=== PATIENT | male | born 1990 | race Caucasian/White ===

== ENCOUNTER 2016-07-19 12:23 | Inpatient (IN) | payer BC ==
[~2016-07-19] VITALS: Ht 198.1 cm; Wt 77.1 kg
[2016-07-19 16:21] VITALS: BP 115/75
[2016-07-19] MEDS ORDERED: Nitroglycerin Subl 0.4mg tab (Bottle Of 25) SL PRN (17:45)
[2016-07-19] MEDS ORDERED: Mylanta II UD 30ml ORAL PRN (17:45)
[2016-07-19] MEDS ORDERED: Morphine Sulfate 2mg/ml Inj IVP PRN (17:45)
[2016-07-19 18:17] LABS: BASOPHILS % (AUTO) 0.9 % (0.0-2.0); EOSINOPHILS % (AUTO) 1.3 % (0.0-3.0); LYMPHOCYTES % (AUTO) 36.8 % (20.0-45.0); MEAN CORPUSCULAR HEMOGLOBIN 35.1 PG (27.0-31.0); MEAN CORPUSCULAR HGB CONC 37.3 G/DL (32.0-36.0); MEAN CORPUSCULAR VOLUME 94 FL (80-99); MEAN PLATELET VOLUME 7.1 FL (6.5-10.1); MONOCYTES % (AUTO) 7.4 % (1.0-10.0); NEUTROPHILS % (AUTO) 53.7 % (45.0-75.0); PLATELET COUNT 177 K/UL (150-450); RED BLOOD COUNT 3.14 M/UL (4.70-6.10); WHITE BLOOD COUNT 8.4 K/UL (4.8-10.8)
[2016-07-19] MEDS: D5NS 1,000 ML IV SCH (18:25)
[2016-07-19 18:34] LABS: ALANINE AMINOTRANSFERASE 13 U/L (3-41); ALBUMIN/GLOBULIN RATIO 1.8 (1.0-2.7); ANION GAP 12 (5-15); ASPARTATE AMINO TRANSFERASE 14 U/L (5-40); CALCIUM 8.4 mg/dL (8.6-10.2); CARBON DIOXIDE 28 mEQ/L (20-30); CHLORIDE 102 mEQ/L (98-107); CREATININE 0.7 mg/dL (0.7-1.2); GLOMERULAR FILTRATION RATE > 60 mL/min (>60); HEMOLYSIS 4; POTASSIUM 3.8 mEQ/L (3.4-4.9); SODIUM 142 mEQ/L (135-145); TOTAL PROTEIN 5.7 g/dL (6.6-8.7)
[2016-07-19] MEDS ORDERED: Phytonadione 10 MG in D5W 55 ML IVPB ONE (19:30)
[2016-07-19 20:23] VITALS: BP 110/62
[2016-07-19] MEDS ORDERED: Miralax 17gm pkt ORAL PRN (21:00)
[2016-07-19] MEDS: Pantoprazole Inj IVP SCH (21:35)
[2016-07-19] MEDS ORDERED: LORazepam 1mg tab ORAL PRN (22:45)
[2016-07-20] VITALS (9 sets, daily range): BP systolic 90–112; BP diastolic 50–68
[2016-07-20] MEDS: D5NS 1,000 ML IV SCH ×2 (04:14→13:39)
[2016-07-20 08:38] LABS: EOSINOPHILS % (AUTO) 3.2 % (0.0-3.0); LYMPHOCYTES % (AUTO) 52.8 % (20.0-45.0); MEAN CORPUSCULAR HEMOGLOBIN 33.8 PG (27.0-31.0); MEAN CORPUSCULAR HGB CONC 35.6 G/DL (32.0-36.0); MEAN CORPUSCULAR VOLUME 95 FL (80-99); MEAN PLATELET VOLUME 7.6 FL (6.5-10.1); MONOCYTES % (AUTO) 7.2 % (1.0-10.0); NEUTROPHILS % (AUTO) 35.8 % (45.0-75.0); PLATELET COUNT 171 K/UL (150-450); RED BLOOD COUNT 2.84 M/UL (4.70-6.10); RED CELL DISTRIBUTION WIDTH 11.1 % (11.6-14.8); WHITE BLOOD COUNT 6.8 K/UL (4.8-10.8)
[2016-07-20] MEDS: Pantoprazole Inj IVP SCH ×2 (08:41→20:45)
[2016-07-20 08:43] LABS: INR 1.2 (0.9-1.1); PROTHROMBIN TIME 11.9 SEC (9.30-11.50)
[2016-07-20 08:45] LABS: ALANINE AMINOTRANSFERASE 14 U/L (3-41); ALBUMIN/GLOBULIN RATIO 1.8 (1.0-2.7); AMYLASE 35 U/L (10-110); ANION GAP 10 (5-15); ASPARTATE AMINO TRANSFERASE 17 U/L (5-40); CALCIUM 8.2 mg/dL (8.6-10.2); CARBON DIOXIDE 29 mEQ/L (20-30); CHLORIDE 103 mEQ/L (98-107); CREATININE 0.9 mg/dL (0.7-1.2); GLOMERULAR FILTRATION RATE > 60 mL/min (>60); HEMOLYSIS 3; LIPASE 28 U/L (< 60); POTASSIUM 3.9 mEQ/L (3.4-4.9); SODIUM 142 mEQ/L (135-145); TOTAL PROTEIN 5.1 g/dL (6.6-8.7)
[2016-07-20 08:49] LABS: MAGNESIUM 1.9 mg/dL (1.7-2.5); PHOSPHORUS 3.4 mg/dL (2.5-4.8)
--- NOTE | 2016-07-20 10:09 | Pre-Procedure Note/Attestation ---
Pre-Procedure Note/Attestation Complete Prior to Procedure Planned Procedure: not applicable Procedure Narrative: egd Indications for Procedure Pre-Operative Diagnosis: gib Attestation I attest that I discussed the nature of the procedure; its benefits; risks and complications; and alternatives (and the risks and benefits of such alternatives ), prior to the procedure, with the patient (or the patient's legal sales representative groceries). I attest that, if there was a reasonable possibility of needing a blood transfusion, the patient (or the patient's legal sales representative groceries) was given the [facility] standardized written summary, pursuant to the Pieter Nimesh Blood Safety Act ([place] Health and Safety Code # 1645, as amended). I attest that I re-evaluated the patient just prior to the surgery and that there has been no change in the patient's H&P, except as documented below: CATALINA DESIR July 20, 2016 10:09
[2016-07-20] MEDS ORDERED: NS 550ML IV ONE (10:15)
[2016-07-20] MEDS ORDERED: Lidocaine 1% MPF 10mg/ml 5ml ONE (10:30)
[2016-07-20] MEDS ORDERED: Propofol 10mg/ml 20ml IV ONE (10:30)
--- NOTE | 2016-07-20 10:41 | Anethesia Preoperative Eval ---
Anesthesia Pre-op PMH/ROS General Date of Evaluation: July 20, 2016 Time of Evaluation: 10:40 Anesthesiologist: rena ASA Score: ASA 2 Mallampati Score Class I : Soft palate, uvula, fauces, pillars visible Class II: Soft palate, uvula, fauces visible Class III: Soft palate, base of uvula visible Class IV: Only hard plate visible Mallampati Classification: Class II Surgeon: harish Diagnosis: gi bld Surgical Procedure: egd Anesthesia History: none Family History: no anesthesia problems Allergies: Coded Allergies: NO KNOWN ALLERGIES (Verified Allergy, Unknown, 07/19/16) Medications: see eMAR Past Medical History Cardiovascular: Denies: CAD, HTN, LA, arrhythmia, other, valve dz Pulmonary: Denies: COPD, JAY, asthma, other Gastrointestinal/Genitourinary: Denies: CRI, ESRD, GERD, other Neurologic/Psychiatric: Denies: CVA, TIA, dementia, depression/anxiety, other Endocrine: Denies: DM, hypothyroidism, other, steroids HEENT: Denies: TEJON (L), TEJON (R), cataract (L), cataract (R), glaucoma, other Hematology/Immune: Reports: anemia PMH Narrative: none Anesthesia Pre-op Phys. Exam Physician Exam Last Vital Signs Date Time Temp Pulse Resp B/P Pulse Ox O2 Delivery O2 Flow Rate FiO2 07/20/16 08:00 65 07/20/16 08:00 97.2 20 99/52 97 Room Air Constitutional: NAD Neurologic: CN 2-12 intact Cardiovascular: RRR Respiratory: CTA Gastrointestinal: S/NT/ND Airway Exam Mallampati Score: Class II MO: full ROM: full Dentures: no lower, no upper Anesthesia Pre-op A/P Labs Hematology Test 07/19/16 18:00 07/20/16 07:45 White Blood Count 8.4 K/UL (4.8-10.8) 6.8 K/UL (4.8-10.8) Red Blood Count 3.14 M/UL (4.70-6.10) L 2.84 M/UL (4.70-6.10) L Hemoglobin 11.0 G/DL (14.2-18.0) L 9.6 G/DL (14.2-18.0) L Hematocrit 29.6 % (42.0-52.0) L 26.9 % (42.0-52.0) L Mean Corpuscular Volume 94 FL (80-99) 95 FL (80-99) Mean Corpuscular Hemoglobin 35.1 PG (27.0-31.0) H 33.8 PG (27.0-31.0) H Mean Corpuscular Hemoglobin Concent 37.3 G/DL (32.0-36.0) H 35.6 G/DL (32.0-36.0) Red Cell Distribution Width 11.0 % (11.6-14.8) L 11.1 % (11.6-14.8) L Platelet Count 177 K/UL (150-450) 171 K/UL (150-450) Mean Platelet Volume 7.1 FL (6.5-10.1) 7.6 FL (6.5-10.1) Neutrophils (%) (Auto) 53.7 % (45.0-75.0) 35.8 % (45.0-75.0) L Lymphocytes (%) (Auto) 36.8 % (20.0-45.0) 52.8 % (20.0-45.0) H Monocytes (%) (Auto) 7.4 % (1.0-10.0) 7.2 % (1.0-10.0) Eosinophils (%) (Auto) 1.3 % (0.0-3.0) 3.2 % (0.0-3.0) H Basophils (%) (Auto) 0.9 % (0.0-2.0) 1.0 % (0.0-2.0) Coagulation Test 07/20/16 07:45 Prothrombin Time 11.9 SEC (9.30-11.50) H Prothromb Time International Ratio 1.2 (0.9-1.1) H Activated Partial Thromboplast Time 25 SEC (23-33) Chemistry Test 07/19/16 18:00 07/20/16 07:45 Sodium Level 142 mEQ/L (135-145) 142 mEQ/L (135-145) Potassium Level 3.8 mEQ/L (3.4-4.9) 3.9 mEQ/L (3.4-4.9) Chloride Level 102 mEQ/L (98-107) 103 mEQ/L (98-107) Carbon Dioxide Level 28 mEQ/L (20-30) 29 mEQ/L (20-30) Anion Gap 12 (5-15) 10 (5-15) Blood Urea Nitrogen 34 mg/dL (7-23) H 27 mg/dL (7-23) H Creatinine 0.7 mg/dL (0.7-1.2) 0.9 mg/dL (0.7-1.2) Estimat Glomerular Filtration Rate > 60 mL/min (>60) > 60 mL/min (>60) Glucose Level 97 mg/dL (74-106) 114 mg/dL (74-106) H Calcium Level 8.4 mg/dL (8.6-10.2) L 8.2 mg/dL (8.6-10.2) L Total Bilirubin 0.5 mg/dL (0.0-1.2) 0.4 mg/dL (0.0-1.2) Aspartate Amino Transf (AST/SGOT) 14 U/L (5-40) 17 U/L (5-40) Alanine Aminotransferase (ALT/SGPT) 13 U/L (3-41) 14 U/L (3-41) Alkaline Phosphatase 37 U/L (40-129) L 34 U/L (40-129) L Total Protein 5.7 g/dL (6.6-8.7) L 5.1 g/dL (6.6-8.7) L Albumin 3.7 g/dL (3.5-5.2) 3.3 g/dL (3.5-5.2) L Globulin 2.0 g/dL 1.8 g/dL Albumin/Globulin Ratio 1.8 (1.0-2.7) 1.8 (1.0-2.7) Phosphorus Level 3.4 mg/dL (2.5-4.8) Magnesium Level 1.9 mg/dL (1.7-2.5) Amylase Level 35 U/L (10-110) Lipase 28 U/L (< 60) Studies Pre-op Studies: EKG - r Risk Assessment & Plan Plan: mac Status Change Before Surgery: No Pre-Antibiotics Drug: none LOLIS ADHIKARI CRNA July 20, 2016 10:41
--- NOTE | 2016-07-20 10:49 | Endoscopy Procedure Note ---
Endoscopy Procedure Note Indication for Procedure: gib Procedures Performed: EGD Operative Findings/Diagnosis: active bleed from MWT Specimen: yes Pt Tolerated Procedure Well: Yes Estimated Blood Loss: none Anesthesiologist: elva Anesthesia: MAC Implant(s) used?: No 50 yrs or older w/o bx or poly: Not Applicable 10yrs. F/U not recommended: Not Applicable CATALINA DESIR July 20, 2016 10:49
--- NOTE | 2016-07-20 10:50 | Immediate Post-Op Evaluation ---
Immediate Post-Op Evalulation Immediate Post-Op Evalulation Procedure: EGD Date of Evaluation: July 20, 2016 Time of Evaluation: 10:49 IV Fluids: 500 Blood Pressure Systolic: 90 Blood Pressure Diastolic: 50 Pulse Rate: 72 Respiratory Rate: 14 O2 Sat by Pulse Oximetry: 100 Temperature (Fahrenheit): 97.8 Nausea: No Vomiting: No Complications none Patient Status: awake, reacts, patent Hydration Status: adequate Drug: none LOLIS ADHIKARI CRNA July 20, 2016 10:50
[2016-07-20] MEDS: Thiamine 100mg tab ORAL SCH (11:36)
--- NOTE | 2016-07-20 11:38 | 48 Hour Post Anesthesia Eval ---
Post Anesthesia Evaluation Procedure: EGD Date of Evaluation: July 20, 2016 Time of Evaluation: 11:36 Blood Pressure Systolic: 115 0: 75 Pulse Rate: 65 Respiratory Rate: 14 O2 Sat by Pulse Oximetry: 100 Airway: patent Nausea: No Vomiting: No Hydration Status: adequate Mental Status/LOC: patient returned to baseline Post-Anesthesia Complications: none Follow-up care needed: N/A LOLIS ADHIKARI CRNA July 20, 2016 11:38
--- NOTE | 2016-07-20 12:52 | Consultation ---
History of Present Illness General Date patient seen: July 20, 2016 Referring physician: Dr. Velarde Reason for Consultation: inpatinet management Present Illness HPI 25 year old male without any PMHx presented to [facility] with vomiting fresh, gucci blood. He was then transferred to [facility] for further evaluation. He doens' t have any pmhx. no ETOH, no NSAID Use. He was transferred to [facility] last night for further treatment. Allergies: Coded Allergies: NO KNOWN ALLERGIES (Verified Allergy, Unknown, 07/19/16) Patient History Healthcare decision maker N Resuscitation status Full Code Advanced Directive on File No Past Medical/Surgical History Past Medical/Surgical History: (1) Tobacco abuse Review of Systems All Other Systems: negative except mentioned in HPI Physical Exam General Appearance: WD/WN Lines, tubes and drains: peripheral, central line HEENT: normocephalic, atraumatic Neck: non-tender, supple Respiratory/Chest: chest wall non-tender, lungs clear Cardiovascular/Chest: normal peripheral pulses, normal rate Abdomen: normal bowel sounds Genitourinary/Rectal: normal genital exam, normal rectal exam, heme negative stool Last 24 Hour Vital Signs Date Time Temp Pulse Resp B/P Pulse Ox O2 Delivery O2 Flow Rate FiO2 07/20/16 12:07 97.0 74 20 107/66 95 Room Air 07/20/16 12:00 70 07/20/16 11:38 65 14 100 07/20/16 10:53 68 20 95/53 100 Nasal Cannula 3.0 07/20/16 10:50 72 14 100 07/20/16 10:48 97.2 73 20 90/50 100 Nasal Cannula 3.0 07/20/16 08:00 65 07/20/16 08:00 97.2 62 20 99/52 97 Room Air 07/20/16 04:00 52 07/20/16 04:00 97.6 49 19 98/52 37 Room Air 07/20/16 00:08 98.7 78 19 95/55 99 Room Air 07/20/16 00:00 59 07/19/16 20:23 98.8 74 20 110/62 100 Room Air 07/19/16 20:00 73 07/19/16 16:54 70 07/19/16 16:21 97.0 80 16 115/75 98 Room Air Intake and Output 07/19/16 07/20/16 19:00 07:00 Intake Total 100 ml 1231 ml Output Total 500 ml 600 ml Balance -400 ml 631 ml Intake IV Total 100 ml 1231 ml Output Urine Total 500 ml 600 ml # Voids 1 Laboratory Tests Test 07/19/16 18:00 07/20/16 07:45 White Blood Count 8.4 K/UL (4.8-10.8) 6.8 K/UL (4.8-10.8) Red Blood Count 3.14 M/UL (4.70-6.10) L 2.84 M/UL (4.70-6.10) L Hemoglobin 11.0 G/DL (14.2-18.0) L 9.6 G/DL (14.2-18.0) L Hematocrit 29.6 % (42.0-52.0) L 26.9 % (42.0-52.0) L Mean Corpuscular Volume 94 FL (80-99) 95 FL (80-99) Mean Corpuscular Hemoglobin 35.1 PG (27.0-31.0) H 33.8 PG (27.0-31.0) H Mean Corpuscular Hemoglobin Concent 37.3 G/DL (32.0-36.0) H 35.6 G/DL (32.0-36.0) Red Cell Distribution Width 11.0 % (11.6-14.8) L 11.1 % (11.6-14.8) L Platelet Count 177 K/UL (150-450) 171 K/UL (150-450) Mean Platelet Volume 7.1 FL (6.5-10.1) 7.6 FL (6.5-10.1) Neutrophils (%) (Auto) 53.7 % (45.0-75.0) 35.8 % (45.0-75.0) L Lymphocytes (%) (Auto) 36.8 % (20.0-45.0) 52.8 % (20.0-45.0) H Monocytes (%) (Auto) 7.4 % (1.0-10.0) 7.2 % (1.0-10.0) Eosinophils (%) (Auto) 1.3 % (0.0-3.0) 3.2 % (0.0-3.0) H Basophils (%) (Auto) 0.9 % (0.0-2.0) 1.0 % (0.0-2.0) Sodium Level 142 mEQ/L (135-145) 142 mEQ/L (135-145) Potassium Level 3.8 mEQ/L (3.4-4.9) 3.9 mEQ/L (3.4-4.9) Chloride Level 102 mEQ/L (98-107) 103 mEQ/L (98-107) Carbon Dioxide Level 28 mEQ/L (20-30) 29 mEQ/L (20-30) Anion Gap 12 (5-15) 10 (5-15) Blood Urea Nitrogen 34 mg/dL (7-23) H 27 mg/dL (7-23) H Creatinine 0.7 mg/dL (0.7-1.2) 0.9 mg/dL (0.7-1.2) Estimat Glomerular Filtration Rate > 60 mL/min (>60) > 60 mL/min (>60) Glucose Level 97 mg/dL (74-106) 114 mg/dL (74-106) H Calcium Level 8.4 mg/dL (8.6-10.2) L 8.2 mg/dL (8.6-10.2) L Total Bilirubin 0.5 mg/dL (0.0-1.2) 0.4 mg/dL (0.0-1.2) Aspartate Amino Transf (AST/SGOT) 14 U/L (5-40) 17 U/L (5-40) Alanine Aminotransferase (ALT/SGPT) 13 U/L (3-41) 14 U/L (3-41) Alkaline Phosphatase 37 U/L (40-129) L 34 U/L (40-129) L Total Protein 5.7 g/dL (6.6-8.7) L 5.1 g/dL (6.6-8.7) L Albumin 3.7 g/dL (3.5-5.2) 3.3 g/dL (3.5-5.2) L Globulin 2.0 g/dL 1.8 g/dL Albumin/Globulin Ratio 1.8 (1.0-2.7) 1.8 (1.0-2.7) Prothrombin Time 11.9 SEC (9.30-11.50) H Prothromb Time International Ratio 1.2 (0.9-1.1) H Activated Partial Thromboplast Time 25 SEC (23-33) Phosphorus Level 3.4 mg/dL (2.5-4.8) Magnesium Level 1.9 mg/dL (1.7-2.5) Amylase Level 35 U/L (10-110) Lipase 28 U/L (< 60) Height (Feet): 6 Height (Inches): 6.00 Weight (Pounds): 170 Medications Current Medications Medications (Trade) Dose Ordered Sig/Jet Route PRN Reason Start Time Stop Time Status Last Admin Dose Admin Acetaminophen (Tylenol) 650 mg Q4H PRN ORAL T>100.5 07/19/16 17:45 08/18/16 17:44 Al Hydroxide/Mg Hydroxide (Mylanta II) 30 ml Q6H PRN ORAL dyspepsia 07/19/16 17:45 08/18/16 17:44 Dextrose STAT PRN IV Hypoglycemia 07/19/16 17:45 08/18/16 17:44 Dextrose/Sodium Chloride (D5ns) 1,000 ml @ 100 mls/hr Q10H IV 07/19/16 18:00 08/18/16 17:59 07/20/16 04:14 Diphenhydramine HCl (Benadryl) 25 mg Q6H PRN ORAL Itching/Pruritis 07/19/16 17:45 08/18/16 17:44 Folic Acid (Folate) 1 mg DAILY ORAL 07/20/16 09:00 08/19/16 08:59 07/20/16 11:36 Lorazepam (Ativan) 1 mg Q6H PRN ORAL For Anxiety 07/19/16 22:45 07/26/16 22:44 Morphine Sulfate (Morphine Sulfate) 2 mg Q4H PRN IVP Severe Pain (Pain Scale 7-10) 07/19/16 17:45 07/26/16 17:44 Nitroglycerin (Ntg) 0.4 mg Q5M X 3 DOSES PRN SL Prn Chest Pain 07/19/16 17:45 08/18/16 17:44 Ondansetron HCl (Zofran) 4 mg Q6H PRN IVP Nausea & Vomiting 07/19/16 17:45 08/18/16 17:44 Pantoprazole (Protonix) 40 mg EVERY 12 HOURS IVP 07/19/16 21:00 08/18/16 20:59 07/20/16 08:41 Polyethylene Glycol (Miralax) 17 gm HSPRN PRN ORAL Constipation 07/19/16 21:00 08/18/16 20:59 Temazepam (Restoril) 15 mg HSPRN PRN ORAL Insomnia 07/19/16 21:00 07/26/16 20:59 Thiamine HCl (Vitamin B1) 100 mg DAILY ORAL 07/20/16 09:00 08/19/16 08:59 07/20/16 11:36 Assessment/Plan Problem List: (1) Severe anemia ICD Codes: D64.9 - Anemia, unspecified SNOMED: 286263697 (2) Gastrointestinal bleed ICD Codes: K92.2 - Gastrointestinal hemorrhage, unspecified SNOMED: 88575908 (3) Tobacco abuse ICD Codes: Z72.0 - Tobacco use SNOMED: 32629686, 368200812 Assessment/Plan NPO GI f/u upper endoscopy noted. check h/h keep in teli until h/h stable for 24 hours ELICIA LEVI July 20, 2016 12:52
--- NOTE | 2016-07-20 19:22 | History & Physical ---
History and Physical History & Physicial Dictated for Int Med-Dr Dangelo no. [id number]. JOSE DAVID MILAN July 20, 2016 19:22
--- NOTE | 2016-07-20 20:33 | Procedure Note ---
DATE OF PROCEDURE: 07/20/2016 SURGEON: Shar Rai M.D. PROCEDURE: Upper endoscopy with biopsy and hemostasis. ANESTHESIA: Per Cherelle VALENCIA. INSTRUMENT: Olympus adult flexible upper endoscope. INDICATION: Upper gastrointestinal bleeding. REASON FOR PROCEDURE: The procedure, risks, benefits, and possible consequences, including hemorrhage, aspiration, perforation and infection, and alternative treatments, were explained to the patient/legal guardian by Dr. Shar Rai and the patient/legal guardian understood and accepted these risks. Description Of Procedure: After informed consent was obtained and the patient was adequately sedated, Olympus upper endoscope was advanced from mouth into the second portion of duodenum and retroflexion was performed in the stomach. The patient had new evidence of Darlyn-Kat tear right at the GE junction, actively bleeding. 00:29 actually was difficult to control. We had to use three hemoclips and 1 mL of epinephrine injection in order to control the bleeding. After that, the bleeding stopped. We also biopsied randomly antrum for H. pylori infection. The patient tolerated the procedure very well without any complication. SUMMARY OF FINDINGS: 1. Actively bleeding Darlyn-Kat tear at the gastroesophageal junction requiring hemostasis including three hemoclips and epinephrine injection. 2. Gastritis, status post biopsy. RECOMMENDATIONS: Follow up biopsies and treat accordingly. Shar Rai M.D. DR: LANE JOB#: [id number] CC:
--- NOTE | 2016-07-20 22:33 | History and Physical Report ---
DATE OF ADMISSION: 07/18/2016 CHIEF COMPLAINT: The patient is a 25-year-old white male, who presents with a chief complaint of vomiting blood. HISTORY OF PRESENT ILLNESS: The patient has a history of alcohol use. The patient states he drinks up to six glasses of wine daily. The patient does not drink every day. The patient states approximately three weeks ago, he began to feel dizzy. The patient also had some nausea. On 07/19/2016, the patient had dark emesis x3. The patient also had one black stool. The patient presented to [facility] emergency room. The patient was found to have active gastrointestinal hemorrhage. The patient is transferred to [facility] for insurance purposes. The patient is admitted for gastrointestinal hemorrhage. PAST MEDICAL HISTORY: The patient denies. CURRENT MEDICATIONS: The patient denies. ALLERGIES: No known drug allergies. 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 The patient admits to alcohol use of four to six glasses of wine, five out of seven days per week. The patient admits to tobacco use of one cigarette daily. The patient admits to occasional marijuana use. FAMILY HISTORY: Negative for diabetes or coronary artery disease. REVIEW OF SYSTEMS: Constitutional: The patient denies weight loss or gain. The patient denies fevers or chills. HEENT: The patient denies ear or throat pain. Cardiovascular: The patient denies palpitations or chest pain. Chest: The patient denies wheeze or shortness of breath. Abdomen: The patient complains of nausea and vomiting as above. The patient complains of vomiting dark emesis as above. The patient complains of dark stool as above. The patient denies constipation or diarrhea. Neuromuscular: The patient denies seizures or generalized weakness. Genitourinary: The patient denies dysuria or increased frequency of urination. PHYSICAL EXAMINATION: VITAL SIGNS: Temperature 97.0 degrees, respirations 20, pulse 74, and blood pressure 107/66. GENERAL: The patient is a well-developed and well-nourished thin-appearing white male, in no apparent distress. HEENT: Eyes, pupils are equal and responsive to light and accommodation. Extraocular movements are intact. NECK: Supple without lymphadenopathy. CHEST: Lungs are clear to auscultation bilaterally without wheezes or rales. CARDIOVASCULAR: Regular rhythm and rate. S1 and S2 are normal without murmurs, rubs, or gallops. ABDOMEN: Soft and tender to palpation in the epigastric region. Otherwise, no rebound or guarding noted. EXTREMITIES: Negative for clubbing, cyanosis, or edema. RECTAL: Refused. GENITALIA: Refused. NEUROLOGIC: Cranial nerves II through XII are grossly intact without focal deficits. Motor strength is 5/5 bilaterally. Deep tendon reflexes are 2+ plantar. LABORATORY STUDIES: WBC 8.4, hemoglobin 11.0, hematocrit 29.6, and platelets 177,000. Sodium 142, potassium 3.8, chloride 102, CO2 28, BUN 34, creatinine 0.7, and glucose 97. ASSESSMENT: This is a 25-year-old white male. 1. Gastrointestinal hemorrhage. 2. Alcohol abuse. TREATMENT: 1. Gastrointestinal hemorrhage. A Gastroenterology consultation was obtained with Dr. Shar Rai. The patient will require an emergent endoscopy. We will follow recommendations of Gastroenterology. The patient has been started empirically on intravenous Protonix drip. We will follow recommendations of Gastroenterology. 2. Alcohol abuse. Arnaldo Velarde M.D. DR: BHAVIN JOB#: [id number] CC:
[2016-07-21] MEDS: D5NS 1,000 ML IV SCH ×2 (00:34→09:57)
[2016-07-21 04:17] VITALS: BP 94/42
[2016-07-21 07:20] LABS: INR 1.2 (0.9-1.1); PROTHROMBIN TIME 12.4 SEC (9.30-11.50)
[2016-07-21 07:21] LABS: BASOPHILS % (AUTO) 1.3 % (0.0-2.0); EOSINOPHILS % (AUTO) 4.7 % (0.0-3.0); LYMPHOCYTES % (AUTO) 49.4 % (20.0-45.0); MEAN CORPUSCULAR HEMOGLOBIN 33.3 PG (27.0-31.0); MEAN CORPUSCULAR HGB CONC 35.6 G/DL (32.0-36.0); MEAN CORPUSCULAR VOLUME 94 FL (80-99); MONOCYTES % (AUTO) 6.3 % (1.0-10.0); NEUTROPHILS % (AUTO) 38.4 % (45.0-75.0); PLATELET COUNT 159 K/UL (150-450); RED BLOOD COUNT 2.47 M/UL (4.70-6.10); RED CELL DISTRIBUTION WIDTH 10.9 % (11.6-14.8); WHITE BLOOD COUNT 6.5 K/UL (4.8-10.8)
[2016-07-21 07:35] LABS: ALANINE AMINOTRANSFERASE 15 U/L (3-41); ALBUMIN/GLOBULIN RATIO 2.1 (1.0-2.7); ANION GAP 9 (5-15); ASPARTATE AMINO TRANSFERASE 16 U/L (5-40); CARBON DIOXIDE 28 mEQ/L (20-30); CHLORIDE 103 mEQ/L (98-107); CREATININE 0.7 mg/dL (0.7-1.2); GLOMERULAR FILTRATION RATE > 60 mL/min (>60); HEMOLYSIS 4; POTASSIUM 3.5 mEQ/L (3.4-4.9); SODIUM 140 mEQ/L (135-145); TOTAL PROTEIN 4.7 g/dL (6.6-8.7)
[2016-07-21 07:43] LABS: PHOSPHORUS 3.8 mg/dL (2.5-4.8)
[2016-07-21 07:46] VITALS: BP 106/61
[2016-07-21] MEDS: Pantoprazole Inj IVP SCH ×2 (08:08→20:46)
[2016-07-21] MEDS: Thiamine 100mg tab ORAL SCH (08:08)
[2016-07-21 11:20] VITALS: BP 113/50
--- NOTE | 2016-07-21 11:26 | GI Progress Note ---
Assessment/Plan Problems: (1) Darlyn-Kat tear ICD Codes: K22.6 - Gastro-esophageal laceration-hemorrhage syndrome SNOMED: 349764724 (2) Severe anemia ICD Codes: D64.9 - Anemia, unspecified SNOMED: 991902044 (3) Gastrointestinal bleed ICD Codes: K92.2 - Gastrointestinal hemorrhage, unspecified SNOMED: 43756844 Status: stable Status Narrative Discussed with Dr. Rai. Assessment/Plan SUMMARY OF FINDINGS: 1. Actively bleeding Darlyn-Kat tear at the gastroesophageal junction requiring hemostasis including three hemoclips and epinephrine injection. 2. Gastritis, status post biopsy. RECOMMENDATIONS: Follow up biopsies and treat accordingly. FLD, adv as tolerated. ppi BID monitor H&H, transfuse prn fu labs Subjective Subjective abdominal pain improving Objective Last 24 Hour Vital Signs Date Time Temp Pulse Resp B/P Pulse Ox O2 Delivery O2 Flow Rate FiO2 07/21/16 11:20 98.1 76 20 113/50 99 Room Air 07/21/16 08:00 73 07/21/16 07:46 98.2 70 20 106/61 98 Room Air 07/21/16 04:17 97.4 73 20 94/42 95 Room Air 07/21/16 04:00 88 07/21/16 00:00 89 07/20/16 23:50 98.2 68 18 112/68 98 Room Air 07/20/16 20:05 97.7 95 20 111/65 99 Room Air 07/20/16 20:00 87 07/20/16 16:00 97.0 72 20 103/63 96 Room Air 07/20/16 16:00 74 07/20/16 12:07 97.0 74 20 107/66 95 Room Air 07/20/16 12:00 70 07/20/16 11:38 65 14 100 Intake and Output 07/20/16 07/21/16 19:00 07:00 Intake Total 1850 ml 1100 ml Output Total 900 ml Balance 1850 ml 200 ml Intake Oral 600 ml IV Total 1250 ml 1100 ml Output Urine Total 900 ml # Voids 6 Laboratory Tests Test 07/21/16 05:35 07/21/16 07:00 White Blood Count 6.5 K/UL (4.8-10.8) Red Blood Count 2.47 M/UL (4.70-6.10) L Hemoglobin 8.2 G/DL (14.2-18.0) L Hematocrit 23.1 % (42.0-52.0) L Mean Corpuscular Volume 94 FL (80-99) Mean Corpuscular Hemoglobin 33.3 PG (27.0-31.0) H Mean Corpuscular Hemoglobin Concent 35.6 G/DL (32.0-36.0) Red Cell Distribution Width 10.9 % (11.6-14.8) L Platelet Count 159 K/UL (150-450) Mean Platelet Volume 7.0 FL (6.5-10.1) Neutrophils (%) (Auto) 38.4 % (45.0-75.0) L Lymphocytes (%) (Auto) 49.4 % (20.0-45.0) H Monocytes (%) (Auto) 6.3 % (1.0-10.0) Eosinophils (%) (Auto) 4.7 % (0.0-3.0) H Basophils (%) (Auto) 1.3 % (0.0-2.0) Sodium Level 140 mEQ/L (135-145) Potassium Level 3.5 mEQ/L (3.4-4.9) Chloride Level 103 mEQ/L (98-107) Carbon Dioxide Level 28 mEQ/L (20-30) Anion Gap 9 (5-15) Blood Urea Nitrogen 9 mg/dL (7-23) Creatinine 0.7 mg/dL (0.7-1.2) Estimat Glomerular Filtration Rate > 60 mL/min (>60) Glucose Level 105 mg/dL (74-106) Calcium Level 8.0 mg/dL (8.6-10.2) L Phosphorus Level 3.8 mg/dL (2.5-4.8) Magnesium Level 2.0 mg/dL (1.7-2.5) Total Bilirubin 0.3 mg/dL (0.0-1.2) Aspartate Amino Transf (AST/SGOT) 16 U/L (5-40) Alanine Aminotransferase (ALT/SGPT) 15 U/L (3-41) Alkaline Phosphatase 32 U/L (40-129) L Total Protein 4.7 g/dL (6.6-8.7) L Albumin 3.2 g/dL (3.5-5.2) L Globulin 1.5 g/dL Albumin/Globulin Ratio 2.1 (1.0-2.7) Prothrombin Time 12.4 SEC (9.30-11.50) H Prothromb Time International Ratio 1.2 (0.9-1.1) H Activated Partial Thromboplast Time 26 SEC (23-33) Height (Feet): 6 Height (Inches): 6.00 Weight (Pounds): 170 General Appearance: no apparent distress, alert, thin Cardiovascular: normal rate Respiratory/Chest: normal breath sounds, no respiratory distress Abdominal Exam: normal bowel sounds, non tender, soft Extremities: normal range of motion Millie Cintron N.P. July 21, 2016 11:26
[2016-07-21] MEDS ORDERED: Tubing IV Secondary IV ONE (13:56)
[2016-07-21] MEDS ORDERED: D5NS 1000ml IV ONE (13:56)
[2016-07-21 14:34] LABS: BASOPHILS % (AUTO) 1.2 % (0.0-2.0); EOSINOPHILS % (AUTO) 4.2 % (0.0-3.0); LYMPHOCYTES % (AUTO) 35.9 % (20.0-45.0); MEAN CORPUSCULAR HEMOGLOBIN 33.3 PG (27.0-31.0); MEAN CORPUSCULAR HGB CONC 35.9 G/DL (32.0-36.0); MEAN CORPUSCULAR VOLUME 93 FL (80-99); MEAN PLATELET VOLUME 6.5 FL (6.5-10.1); MONOCYTES % (AUTO) 5.4 % (1.0-10.0); NEUTROPHILS % (AUTO) 53.4 % (45.0-75.0); PLATELET COUNT 177 K/UL (150-450); RED CELL DISTRIBUTION WIDTH 10.5 % (11.6-14.8); WHITE BLOOD COUNT 5.6 K/UL (4.8-10.8)
[2016-07-21 15:22] VITALS: BP 96/50
--- NOTE | 2016-07-21 16:55 | Internal Med Progress Note ---
Subjective Physician Name Quincy Dangelo Attending Physician Quincy Dangelo MD Current Medications Medications (Trade) Dose Ordered Sig/Jet Route PRN Reason Start Time Stop Time Status Last Admin Dose Admin Acetaminophen (Tylenol) 650 mg Q4H PRN ORAL T>100.5 OR PAIN 1-4 07/21/16 13:45 08/20/16 13:44 Al Hydroxide/Mg Hydroxide (Mylanta II) 30 ml Q6H PRN ORAL dyspepsia 07/19/16 17:45 08/18/16 17:44 Dextrose STAT PRN IV Hypoglycemia 07/19/16 17:45 08/18/16 17:44 Dextrose/Sodium Chloride (D5ns) 1,000 ml @ 100 mls/hr Q10H IV 07/19/16 18:00 08/18/16 17:59 07/21/16 09:57 Diphenhydramine HCl (Benadryl) 25 mg Q6H PRN ORAL Itching/Pruritis 07/19/16 17:45 08/18/16 17:44 Folic Acid (Folate) 1 mg DAILY ORAL 07/20/16 09:00 08/19/16 08:59 07/21/16 08:08 Lorazepam (Ativan) 1 mg Q6H PRN ORAL For Anxiety 07/19/16 22:45 07/26/16 22:44 Morphine Sulfate (Morphine Sulfate) 2 mg Q4H PRN IVP Severe Pain (Pain Scale 7-10) 07/19/16 17:45 07/26/16 17:44 Nitroglycerin (Ntg) 0.4 mg Q5M X 3 DOSES PRN SL Prn Chest Pain 07/19/16 17:45 08/18/16 17:44 Ondansetron HCl (Zofran) 4 mg Q6H PRN IVP Nausea & Vomiting 07/19/16 17:45 08/18/16 17:44 Pantoprazole (Protonix) 40 mg EVERY 12 HOURS IVP 07/19/16 21:00 08/18/16 20:59 07/21/16 08:08 Polyethylene Glycol (Miralax) 17 gm HSPRN PRN ORAL Constipation 07/19/16 21:00 08/18/16 20:59 Temazepam (Restoril) 15 mg HSPRN PRN ORAL Insomnia 07/19/16 21:00 07/26/16 20:59 Thiamine HCl (Vitamin B1) 100 mg DAILY ORAL 07/20/16 09:00 08/19/16 08:59 07/21/16 08:08 Allergies: Coded Allergies: NO KNOWN ALLERGIES (Verified Allergy, Unknown, 07/19/16) Subjective awake, alert, responsive, pallor Objective Last Vital Signs Date Time Temp Pulse Resp B/P Pulse Ox O2 Delivery O2 Flow Rate FiO2 07/21/16 16:00 81 07/21/16 15:22 98.6 20 96/50 98 Room Air 07/20/16 10:53 3.0 Laboratory Tests Test 07/21/16 05:35 07/21/16 07:00 07/21/16 14:25 White Blood Count 6.5 K/UL (4.8-10.8) 5.6 K/UL (4.8-10.8) Red Blood Count 2.47 M/UL (4.70-6.10) L 2.50 M/UL (4.70-6.10) L Hemoglobin 8.2 G/DL (14.2-18.0) L 8.3 G/DL (14.2-18.0) L Hematocrit 23.1 % (42.0-52.0) L 23.2 % (42.0-52.0) L Mean Corpuscular Volume 94 FL (80-99) 93 FL (80-99) Mean Corpuscular Hemoglobin 33.3 PG (27.0-31.0) H 33.3 PG (27.0-31.0) H Mean Corpuscular Hemoglobin Concent 35.6 G/DL (32.0-36.0) 35.9 G/DL (32.0-36.0) Red Cell Distribution Width 10.9 % (11.6-14.8) L 10.5 % (11.6-14.8) L Platelet Count 159 K/UL (150-450) 177 K/UL (150-450) Mean Platelet Volume 7.0 FL (6.5-10.1) 6.5 FL (6.5-10.1) Neutrophils (%) (Auto) 38.4 % (45.0-75.0) L 53.4 % (45.0-75.0) Lymphocytes (%) (Auto) 49.4 % (20.0-45.0) H 35.9 % (20.0-45.0) Monocytes (%) (Auto) 6.3 % (1.0-10.0) 5.4 % (1.0-10.0) Eosinophils (%) (Auto) 4.7 % (0.0-3.0) H 4.2 % (0.0-3.0) H Basophils (%) (Auto) 1.3 % (0.0-2.0) 1.2 % (0.0-2.0) Sodium Level 140 mEQ/L (135-145) Potassium Level 3.5 mEQ/L (3.4-4.9) Chloride Level 103 mEQ/L (98-107) Carbon Dioxide Level 28 mEQ/L (20-30) Anion Gap 9 (5-15) Blood Urea Nitrogen 9 mg/dL (7-23) Creatinine 0.7 mg/dL (0.7-1.2) Estimat Glomerular Filtration Rate > 60 mL/min (>60) Glucose Level 105 mg/dL (74-106) Calcium Level 8.0 mg/dL (8.6-10.2) L Phosphorus Level 3.8 mg/dL (2.5-4.8) Magnesium Level 2.0 mg/dL (1.7-2.5) Total Bilirubin 0.3 mg/dL (0.0-1.2) Aspartate Amino Transf (AST/SGOT) 16 U/L (5-40) Alanine Aminotransferase (ALT/SGPT) 15 U/L (3-41) Alkaline Phosphatase 32 U/L (40-129) L Total Protein 4.7 g/dL (6.6-8.7) L Albumin 3.2 g/dL (3.5-5.2) L Globulin 1.5 g/dL Albumin/Globulin Ratio 2.1 (1.0-2.7) Prothrombin Time 12.4 SEC (9.30-11.50) H Prothromb Time International Ratio 1.2 (0.9-1.1) H Activated Partial Thromboplast Time 26 SEC (23-33) Intake and Output 07/20/16 07/21/16 19:00 07:00 Intake Total 1850 ml 1100 ml Output Total 900 ml Balance 1850 ml 200 ml Intake Oral 600 ml IV Total 1250 ml 1100 ml Output Urine Total 900 ml # Voids 6 Objective General: No acute distress, awake and alert HEENT: NCAT, sclera anicteric, PERRL, EOMI. Neck: Supple, no significant jugular venous distention, Lungs: Good inspiratory effort, no accessory muscle use, clear to auscultation bilaterally, no Wheeze Heart: Regular rate and rhythm, normal S1/S2, no murmurs Abdomen: soft, nontender, nondistended. Normoactive bowel sounds. Extremities: No Cyanosis , clubbing or edema. Neuro: A&O x 3, Able to move all extremities Skin: warm, no rashes or lesions Psych: Normal mood and affect Assessment/Plan Assessment/Plan 1. Acute GI bleeding due to MWT 2. Alcohol abuse. 3. Anemia due to GI bleeding Plan: DC buffet server Labs, H/H IVF@ 75 cc/hr advance diet slowly discuss with patient and his boyfriend at bedside and explained his status and plan of care. F/U with Dr. Rai recommendations. Quincy Dangelo MD July 21, 2016 16:55
[2016-07-21] MEDS ORDERED: Nitroglycerin Subl 0.4mg tab (Bottle Of 25) SL PRN ×3 (17:45→18:36)
[2016-07-21] MEDS ORDERED: D5NS 1,000 ML IV SCH ×3 (18:00→18:45)
--- NOTE | 2016-07-21 18:30 | Diagnostic Imaging Report ---
APPROVED REPORT CPT Code: 43806 Present Symptoms Comments: R/O DVT BILATERAL: Imaging reveals a patent deep venous system bilaterally. There is no evidence of thrombus within the femoral, popliteal or tibial segments. The greater saphenous veins are also within normal limits. Doppler indicates normal spontaneous flow within these segments.
[2016-07-21] MEDS ORDERED: Mylanta II UD 30ml ORAL PRN ×3 (18:32→23:45)
[2016-07-21] MEDS ORDERED: LORazepam 1mg tab ORAL PRN ×3 (18:35→22:45)
[2016-07-21] MEDS ORDERED: Miralax 17gm pkt ORAL PRN ×3 (18:36→21:00)
[2016-07-21] MEDS ORDERED: Morphine Sulfate 2mg/ml Inj IVP PRN ×3 (18:36→21:45)
[2016-07-21 19:00] VITALS: BP 122/66
[2016-07-21 20:00] VITALS: BP 106/47
[2016-07-21] MEDS ORDERED: Pantoprazole Inj IVP SCH ×2 (21:00)
--- NOTE | 2016-07-21 22:32 | Pulmonology Progress Note ---
Assessment/Plan Problems: (1) Severe anemia (2) Gastrointestinal bleed (3) Tobacco abuse Assessment/Plan improving h/h stable advance diet Subjective ROS Limited/Unobtainable: No Allergies: Coded Allergies: NO KNOWN ALLERGIES (Verified Allergy, Unknown, 07/19/16) Objective Last 24 Hour Vital Signs Date Time Temp Pulse Resp B/P Pulse Ox O2 Delivery O2 Flow Rate FiO2 07/21/16 20:00 98.4 75 18 106/47 100 Room Air 07/21/16 19:00 97.4 86 20 122/66 97 Room Air 07/21/16 16:00 81 07/21/16 15:22 98.6 80 20 96/50 98 Room Air 07/21/16 12:00 87 07/21/16 11:20 98.1 76 20 113/50 99 Room Air 07/21/16 08:00 73 07/21/16 07:46 98.2 70 20 106/61 98 Room Air 07/21/16 04:17 97.4 73 20 94/42 95 Room Air 07/21/16 04:00 88 07/21/16 00:00 89 07/20/16 23:50 98.2 68 18 112/68 98 Room Air Intake and Output 07/20/16 07/21/16 19:00 07:00 Intake Total 1850 ml 1100 ml Output Total 900 ml Balance 1850 ml 200 ml Intake Oral 600 ml IV Total 1250 ml 1100 ml Output Urine Total 900 ml # Voids 6 Objective General Appearance: WD/WN HEENT: normocephalic, atraumatic Respiratory/Chest: lungs clear Breasts: no masses Cardiovascular: normal peripheral pulses, normal rate, regular rhythm Abdomen: normal bowel sounds, soft, non tender Extremities: no cyanosis, no clubbing Skin: no lesions Neurologic/Psychiatric: 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 grossly normal, abnormal gait Lymphatic: no neck adenopathy, no groin adenopathy Musculoskeletal: normal muscle bulk Laboratory Tests 07/21/16 05:35: White Blood Count 6.5, Red Blood Count 2.47L, Hemoglobin 8.2L, Hematocrit 23.1L , Mean Corpuscular Volume 94, Mean Corpuscular Hemoglobin 33.3H, Mean Corpuscular Hemoglobin Concent 35.6, Red Cell Distribution Width 10.9L, Platelet Count 159, Mean Platelet Volume 7.0, Neutrophils (%) (Auto) 38.4L, Lymphocytes (%) (Auto) 49.4H, Monocytes (%) (Auto) 6.3, Eosinophils (%) (Auto) 4.7H, Basophils (%) (Auto) 1.3, Sodium Level 140, Potassium Level 3.5, Chloride Level 103, Carbon Dioxide Level 28, Anion Gap 9, Blood Urea Nitrogen 9, Creatinine 0.7, Estimat Glomerular Filtration Rate > 60, Glucose Level 105, Calcium Level 8.0L, Phosphorus Level 3.8, Magnesium Level 2.0, Total Bilirubin 0.3, Aspartate Amino Transf (AST/SGOT) 16, Alanine Aminotransferase (ALT/SGPT) 15, Alkaline Phosphatase 32L, Total Protein 4.7L, Albumin 3.2L, Globulin 1.5, Albumin/Globulin Ratio 2.1 07/21/16 07:00: Prothrombin Time 12.4H, Prothromb Time International Ratio 1.2H, Activated Partial Thromboplast Time 26 07/21/16 14:25: White Blood Count 5.6, Red Blood Count 2.50L, Hemoglobin 8.3L, Hematocrit 23.2L , Mean Corpuscular Volume 93, Mean Corpuscular Hemoglobin 33.3H, Mean Corpuscular Hemoglobin Concent 35.9, Red Cell Distribution Width 10.5L, Platelet Count 177, Mean Platelet Volume 6.5, Neutrophils (%) (Auto) 53.4, Lymphocytes (%) (Auto) 35.9, Monocytes (%) (Auto) 5.4, Eosinophils (%) (Auto) 4.2H, Basophils (%) (Auto) 1.2 Current Medications Medications (Trade) Dose Ordered Sig/Jet Route PRN Reason Start Time Stop Time Status Last Admin Dose Admin Acetaminophen (Tylenol) 650 mg Q4H PRN ORAL T>100.5 OR PAIN 1-4 07/21/16 18:31 07/21/16 20:50 Al Hydroxide/Mg Hydroxide (Mylanta II) 30 ml Q6H PRN ORAL dyspepsia 07/21/16 18:32 Dextrose (Dextrose 50%) STAT PRN IV Hypoglycemia 07/21/16 18:35 08/20/16 18:34 Diphenhydramine HCl (Benadryl) 25 mg Q6H PRN ORAL Itching/Pruritis 07/21/16 18:32 Folic Acid (Folate) 1 mg DAILY ORAL 07/22/16 09:00 08/21/16 08:59 Pantoprazole (Protonix) 40 mg EVERY 12 HOURS IVP 07/21/16 21:00 08/20/16 20:59 07/21/16 20:46 Thiamine HCl (Vitamin B1) 100 mg DAILY ORAL 07/22/16 09:00 08/21/16 08:59 ELICIA LEVI July 21, 2016 22:32
[2016-07-22] VITALS: BP 90/41
[2016-07-22 04:00] VITALS: BP 97/51
[2016-07-22 04:40] LABS: BASOPHILS % (AUTO) 1.4 % (0.0-2.0); EOSINOPHILS % (AUTO) 5.5 % (0.0-3.0); LYMPHOCYTES % (AUTO) 43.9 % (20.0-45.0); MEAN CORPUSCULAR HEMOGLOBIN 33.9 PG (27.0-31.0); MEAN CORPUSCULAR HGB CONC 36.6 G/DL (32.0-36.0); MEAN CORPUSCULAR VOLUME 92 FL (80-99); MONOCYTES % (AUTO) 9.7 % (1.0-10.0); NEUTROPHILS % (AUTO) 39.5 % (45.0-75.0); PLATELET COUNT 183 K/UL (150-450); RED BLOOD COUNT 2.47 M/UL (4.70-6.10); RED CELL DISTRIBUTION WIDTH 10.5 % (11.6-14.8); WHITE BLOOD COUNT 6.4 K/UL (4.8-10.8)
[2016-07-22 05:23] LABS: ANION GAP 10 (5-15); CALCIUM 8.3 mg/dL (8.6-10.2); CARBON DIOXIDE 29 mEQ/L (20-30); CHLORIDE 103 mEQ/L (98-107); CREATININE 0.9 mg/dL (0.7-1.2); GLOMERULAR FILTRATION RATE > 60 mL/min (>60); HEMOLYSIS 4; POTASSIUM 3.4 mEQ/L (3.4-4.9); SODIUM 142 mEQ/L (135-145)
[2016-07-22 08:00] VITALS: BP 102/63
[2016-07-22] MEDS: Pantoprazole Inj IVP SCH (08:43)
[2016-07-22] MEDS ORDERED: Thiamine 100mg tab ORAL SCH ×3 (09:00)
[2016-07-22] MEDS ORDERED: NS 275ml ONE (10:34)
[2016-07-22] MEDS ORDERED: Tubing IV Secondary IV ONE (10:34)
--- NOTE | 2016-07-22 12:04 | Pulmonology Progress Note ---
Assessment/Plan Problems: (1) Severe anemia (2) Gastrointestinal bleed (3) Tobacco abuse Assessment/Plan improving h/h stable advance diet dc home today Subjective ROS Limited/Unobtainable: No Constitutional: Reports: no symptoms Respiratory: Reports: no symptoms Allergies: Coded Allergies: NO KNOWN ALLERGIES (Verified Allergy, Unknown, 07/19/16) Objective Last 24 Hour Vital Signs Date Time Temp Pulse Resp B/P Pulse Ox O2 Delivery O2 Flow Rate FiO2 07/22/16 08:00 98.1 69 18 102/63 98 Room Air 07/22/16 04:00 97.9 63 18 97/51 99 Room Air 07/22/16 00:00 97.9 58 18 90/41 100 Room Air 07/21/16 20:00 98.4 75 18 106/47 100 Room Air 07/21/16 19:00 97.4 86 20 122/66 97 Room Air 07/21/16 16:00 81 07/21/16 15:22 98.6 80 20 96/50 98 Room Air Intake and Output 07/21/16 07/22/16 19:00 07:00 Intake Total 1870 ml 150 ml Output Total 3550 ml Balance -1680 ml 150 ml Intake Oral 1870 ml 150 ml Output Urine Total 3550 ml # Voids 1 Objective General Appearance: WD/WN HEENT: normocephalic, atraumatic Respiratory/Chest: lungs clear Breasts: no masses Cardiovascular: normal peripheral pulses, normal rate, regular rhythm Abdomen: normal bowel sounds, soft, non tender Extremities: no cyanosis, no clubbing Skin: no lesions Neurologic/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: 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-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 grossly normal, abnormal gait Lymphatic: no neck adenopathy, no groin adenopathy Musculoskeletal: normal muscle bulk Laboratory Tests 07/21/16 14:25: White Blood Count 5.6, Red Blood Count 2.50L, Hemoglobin 8.3L, Hematocrit 23.2L , Mean Corpuscular Volume 93, Mean Corpuscular Hemoglobin 33.3H, Mean Corpuscular Hemoglobin Concent 35.9, Red Cell Distribution Width 10.5L, Platelet Count 177, Mean Platelet Volume 6.5, Neutrophils (%) (Auto) 53.4, Lymphocytes (%) (Auto) 35.9, Monocytes (%) (Auto) 5.4, Eosinophils (%) (Auto) 4.2H, Basophils (%) (Auto) 1.2 07/22/16 04:35: White Blood Count 6.4, Red Blood Count 2.47L, Hemoglobin 8.4L, Hematocrit 22.8L , Mean Corpuscular Volume 92, Mean Corpuscular Hemoglobin 33.9H, Mean Corpuscular Hemoglobin Concent 36.6H, Red Cell Distribution Width 10.5L, Platelet Count 183, Mean Platelet Volume 6.0L, Neutrophils (%) (Auto) 39.5L, Lymphocytes (%) (Auto) 43.9, Monocytes (%) (Auto) 9.7, Eosinophils (%) (Auto) 5.5H, Basophils (%) (Auto) 1.4, Sodium Level 142, Potassium Level 3.4, Chloride Level 103, Carbon Dioxide Level 29, Anion Gap 10, Blood Urea Nitrogen 4L, Creatinine 0.9, Estimat Glomerular Filtration Rate > 60, Glucose Level 109H, Calcium Level 8.3L Current Medications Medications (Trade) Dose Ordered Sig/Jet Route PRN Reason Start Time Stop Time Status Last Admin Dose Admin Acetaminophen (Tylenol) 650 mg Q4H PRN ORAL T>100.5 OR PAIN 1-4 07/21/16 18:31 07/21/16 20:50 Al Hydroxide/Mg Hydroxide (Mylanta II) 30 ml Q6H PRN ORAL dyspepsia 07/21/16 18:32 Dextrose (Dextrose 50%) STAT PRN IV Hypoglycemia 07/21/16 18:35 08/20/16 18:34 Diphenhydramine HCl (Benadryl) 25 mg Q6H PRN ORAL Itching/Pruritis 07/21/16 18:32 Folic Acid (Folate) 1 mg DAILY ORAL 07/22/16 09:00 08/21/16 08:59 07/22/16 08:43 Pantoprazole (Protonix) 40 mg EVERY 12 HOURS IVP 07/21/16 21:00 08/20/16 20:59 07/22/16 08:43 Thiamine HCl (Vitamin B1) 100 mg DAILY ORAL 07/22/16 09:00 08/21/16 08:59 07/22/16 08:43 ELICIA LEVI July 22, 2016 12:04
[2016-07-22 12:22] VITALS: BP 116/70
[2016-07-22] MEDS ORDERED: D5NS 1000ml IV ONE ×2 (13:27)
--- NOTE | 2016-07-23 07:07 | Internal Med Progress Note ---
Subjective Date of Service: July 22, 2016 Physician Name Quincy Dangelo Attending Physician Quincy Dangelo MD Allergies: Coded Allergies: NO KNOWN ALLERGIES (Verified Allergy, Unknown, 07/19/16) Subjective awake, alert, responsive, feeling better. Hgb 8.4 stable Objective Last Vital Signs Date Time Temp Pulse Resp B/P Pulse Ox O2 Delivery O2 Flow Rate FiO2 07/22/16 12:22 97.7 67 14 116/70 100 Room Air 07/20/16 10:53 3.0 Objective General: No acute distress, awake and alert HEENT: NCAT, sclera anicteric, PERRL, EOMI. Neck: Supple, no significant jugular venous distention, Lungs: Good inspiratory effort, no accessory muscle use, clear to auscultation bilaterally, no Wheeze Heart: Regular rate and rhythm, normal S1/S2, no murmurs Abdomen: soft, nontender, nondistended. Normoactive bowel sounds. Extremities: No Cyanosis , clubbing or edema. Neuro: A&O x 3, Able to move all extremities Skin: warm, no rashes or lesions Psych: Normal mood and affect Assessment/Plan Assessment/Plan 1. Acute GI bleeding due to Darlyn Kat tear 2. Alcohol abuse. 3. Anemia due to GI bleeding Plan: Dc home today F/U with GI in 1 week F/U with Dr. Rai recommendations. Quincy Dangelo MD July 23, 2016 07:07
--- NOTE | 2016-07-25 09:38 | Discharge Summary ---
Discharge Summary Hospital Course Date of Admission July 19, 2016 at 16:00 Date of Discharge July 22, 2016 at 13:28 Admitting Diagnosis HPI Matheus Navarro is a 25 year old male who was admitted on July 19, 2016 at 16:00 for Gastrointestinal Bleed Hospital Course dc summary #[id number] Discharge Condition Upon Discharge: stable Discharge Disposition Patient was discharged to Home (01) Discharge Diagnoses: Discharge Instructions Discharge Instructions Special Instructions I have been assigned to complete a D/C Summary on this account. I was not involved in the patient management Tanisha Cherry NP ([place]) July 25, 2016 09:38
--- NOTE | 2016-07-25 23:15 | Discharge Summary 2 SIG ---
DATE OF ADMISSION: 07/19/2016 DATE OF DISCHARGE: 07/22/2016 REASON FOR ADMISSION: The patient is a 25 years old male, who was transferred from [facility] for acute gastrointestinal bleeding. The patient was transferred for insurance purposes. The patient reported history of alcohol abuse with drinking up to six glasses of wine daily, however, he denied drinking everyday. He reported approximately three weeks ago, he started to feel dizzy and nauseous. On 07/19/2016, the patient noted dark emesis x3 and one black stool. Upon transfer, hemoglobin was 11.0, hematocrit 29.6, the patient admitted for gastrointestinal workup. ADMITTING DIAGNOSES: 1. Gastrointestinal hemorrhage. 2. History of alcohol abuse. 3. Anemia. HOSPITAL STAY: The patient admitted on the telemetry floor. The patient initially kept NPO. The patient started on IV fluids. GI consult was urgently requested. The patient subsequently on the same day, 07/20/2016 undergone esophagogastroduodenoscopy with biopsy and hemostasis. The patient found to have actively bleeding Darlyn-Kat tear at the gastroesophageal junction, which required hemostasis with three hemoclips and epinephrine injection. Also, found gastritis, status post biopsy according to the gastrointestinal followup with the biopsy results and treat accordingly. The patient started on diet, which was advanced, able to tolerate diet. Antiemetic provided as needed. The patient also started on thiamine and folic acid. Hemoglobin and hematocrit were closely monitored, the lowest one is 8.2 and 23.1 in one day and then started slowly trend up. On the day of discharge, hemoglobin 8.4 and hematocrit 22.8. The patient counseled on avoidance of alcohol and smoking cessation. The patient declined nicotine patch. Venous duplex bilateral lower extremity was negative, no further bleeding. The patient is stable for discharge. DISCHARGE DIAGNOSES: 1. Gastrointestinal hemorrhage. 2. History of alcohol abuse. 3. Anemia. 4. Status post esophagogastroduodenoscopy with biopsy and hemostasis. 5. Actively bleeding Darlyn-Kat tear, status post hemostasis. 6. Gastritis, status post biopsy. 7. Tobacco abuse. DISCHARGE MEDICATIONS: See medication reconciliation list. DISCHARGE INSTRUCTIONS: The patient to follow up with primary medical doctor. The patient discharged home. Quincy Dangelo M.D. I have been assigned to dictate discharge summary on this account and I was not involved in the patient's management. Tanisha ramirezdave NAntolinPAntolin DR: BELKYS JOB#: [id number] CC:
== END 2016-07-22 13:28 | disposition home or self-care (01) | DRG 370 ==
LOC: 2E 16:00 → 4E 07-21 18:47
PROC: 0DB68ZX Excision of Stomach, Via Natural or Artificial Opening Endoscopic, Diagnostic (ICD-10-PCS; principal; 2016-07-20 10:27)
PROC: 0W3P8ZZ Control Bleeding in Gastrointestinal Tract, Via Natural or Artificial Opening Endoscopic (ICD-10-PCS; principal; 2016-07-20 10:27)
DX: K22.6 Gastro-esophageal laceration-hemorrhage syndrome (principal); D50.0 Iron deficiency anemia secondary to blood loss (chronic); F17.200 Nicotine dependence, unspecified, uncomplicated; K29.70 Gastritis, unspecified, without bleeding; F10.10 Alcohol abuse, uncomplicated
CPT/HCPCS: 36415; 80048; 80053; 82150; 83690; 83735; 84100; 85025; 85610; 85730; 86850; 86900; 86901; 86920; 93970; 94003; 94150